=== PATIENT | female | born 1950 | race Two or more races ===

== ENCOUNTER 2023-06-27 07:22 | Outpatient (AMB) | payer MEDICARE, SELFPAY ==
--- NOTE | 2023-06-27 07:35 | MHC.PC.OV ---
Vital Signs 06/27/23 07:37 Height 5 ft 2.8 in Weight 204 lb BMI 36.4 BP 120/68 Blood Pressure Location Rt brachial Position Sitting Pulse 60 Pulse Source Pulse Oximeter Pulse Oximetry (%) 98 Oxygen Delivery Method Room Air Intake Visit Reasons: Est. Care/Requesting PE Intake Note: pt is here to est care pt has not had a colon screening last mammo was 14-20 years ago Allergies ENVIROMENTAL Allergy (Unknown, Uncoded 06/27/23 07:40) HEADACHES, DIZZY - FROM CERTAIN GRASS Medication List - Last Reconciled 06/27/23 by Fabiola Chacon MD No Known Home Meds Tobacco use date assessed: 06/27/23 Fall risk assessment: No Falls in past year Last assessed Fall Risk: 06/27/23 Dental Screening Dental Screen Date: 06/27/23 Did you have a dental visit in the last 12 months?: No Did you have a dental problem in the last 6 months where you did not have access to dental care?: No Was dental information given to patient?: No HPI Est. 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 Patient has a history of longstanding rosacea and has tried multiple creams in the past but has not been consistently using them. [facility] Social History Patient Tobacco Use Status: Never used Tobacco e-Cigarette/Vaping Use: Never Used Current occupational status: retired Review of Systems Const All systems reviewed & are unremarkable except as noted in HPI and below Reports no additional complaints Eyes Reports no additional complaints ENT Reports no additional complaints Card Reports no additional complaints Resp Reports no additional complaints GI Reports no additional complaints Reports no additional complaints Musc Reports no additional complaints Physical exam (Primary Care) Vital Signs: Last Vital Signs Pulse 60 06/27/23 07:37 BP 120/68 06/27/23 07:37 Pulse Ox 98 06/27/23 07:37 Oxygen Delivery Method Room Air 06/27/23 07:37 BMI result Body Mass Index 36.4 Tobacco/Smoking Status: Tobacco use Status Tobacco use date assessed 06/27/23 06/27/23 07:44 Patient Tobacco Use Status Never used Tobacco 06/27/23 07:35 e-Cigarette/Vaping Use Never Used 06/27/23 07:44 Const General: no acute distress HENMT Head: Yes normal to inspection Ears: hearing grossly normal bilaterally General nose exam: Normal external nose present Mouth: Normal oral and palatal mucosa present Throat: Yes posterior oropharynx normal Eyes General: appearance normal, both eyes and all related structures Neck Neck: Yes no lymphadenopathy and Yes supple Resp Effort & Inspection: normal respiratory effort Auscultation: clear to auscultation bilaterally Cardio Rhythm: regular rhythm Heart sounds: S1 normal heart sound present and S2 normal heart sound present GI Inspection: Yes normal to inspection Palpation (GI): Soft to palpation Percussion: Yes normal to percussion Auscultation: normal bowel sounds Skin Other: Erythematous papular rash and telangiectasia on the nose and cheeks Assessment and Plan Assessment & Plan (1) Annual physical exam: Code(s): Z00.00 - Encounter for general adult medical examination without abnormal findings Plan: Balanced diet and regular physical activity weight loss discussed with the patient. She will have a fasting blood work today. Patient declined mammogram and colonoscopy (2) Rosacea: Code(s): L71.9 - Rosacea, unspecified Plan: Try Finacea gel and refer to logistics program manager. (3) Colonoscopy refused: Comment: 07/17 Code(s): Z53.20 - Procedure and treatment not carried out because of patient's decision for unspecified reasons (4) Mammogram declined: Comment: 07/17 Code(s): Z53.20 - Procedure and treatment not carried out because of patient's decision for unspecified reasons Orders: Orders Vitamin D 25-OH Total Today Z00.00 - Encounter for general adult medical examination without abnormal findings Lipid Panel Today Z00.00 - Encounter for general adult medical examination without abnormal findings Comprehensive Sterrett. Panel Fast Today Z00.00 - Encounter for general adult medical examination without abnormal findings Complete Blood Count Auto Diff Today Z00.00 - Encounter for general adult medical examination without abnormal findings TSH reflex Free T4 Today Z00.00 - Encounter for general adult medical examination without abnormal findings Referrals Dermatology Referral L71.9 - Rosacea, unspecified Cologuard Test Z00.00 - Encounter for general adult medical examination without abnormal findings, Z12.11 - Encounter for screening for malignant neoplasm of colon, Z12.12 - Encounter for screening for malignant neoplasm of rectum Medications: New azelaic acid 15% (Finacea) 1 appl topical BID 50 grams 4RF Coding Level of Care Code New Pt Prev Care >65yr (38262) Diagnoses Annual physical exam Z00.00 Rosacea L71.9 Colonoscopy refused Z53.20 Mammogram declined Z53.20
[2023-06-27 07:37] VITALS: BP 120/68; PULSE 60; O2SAT 98; BMI 36.4
== END 2023-06-27 09:13 | disposition home or self-care (01) ==
PROVIDERS: Visit Provider Internal Medicine
DX: Z00.00 Encounter for general adult medical examination without abnormal findings (principal); L71.9 Rosacea, unspecified; Z53.20 Procedure and treatment not carried out because of patient's decision for unspecified reasons
CPT/HCPCS: 99387; 99397

== ENCOUNTER 2023-06-27 08:15 | Outpatient (REF) | payer MEDICARE, SELFPAY ==
[2023-06-27 11:29] LABS: MANUAL DIFF FLAG NO
[2023-06-27 11:35] LABS: Basophils Percent Auto 0.4 % (0-2); Eosinophils Absolute Auto 0.2 X10*3/uL (0.0-0.4); Eosinophils Percent Auto 4.7 % (0-4); Hematocrit 37.4 % (37.0-47.0); Imm Gran Abs Auto 0.01 X10*3/uL (0.00-0.03); Imm Gran Pct Auto 0.2 % (0.0-0.4); Lymphocytes Percent Auto 43.4 % (20-40); Mean Corpuscular HGB Conc 32.1 g/dl (31.0-35.0); Mean Corpuscular Hemoglobin 26.7 pg (27.0-33.0); Mean Corpuscular Volume 83.3 fL (80.0-98.0); Mean Platelet Volume 10.7 fL (9.4-12.3); Monocytes Absolute Auto 0.4 X10*3/uL (0.1-1.2); Monocytes Percent Auto 8.4 % (2-11); Neutrophils Percent Auto 42.9 % (45-73); Platelet Count 230 X10*3/uL (160-400); Red Blood Count 4.49 X10*6/uL (4.20-5.50); Red Cell Distribution Width 14.5 % (11.0-16.0); White Blood Count 4.7 X10*3/uL (4.8-10.8)
[2023-06-27 12:22] LABS: Alanine Aminotransferase 15 U/L (0-31); Albumin Level 3.9 g/dL (3.5-5.0); Alkaline Phosphatase 60 U/L (39-117); Anion Gap 12 (12-20); Aspartate Amino Transferase 19 U/L (5-31); Bilirubin Total 0.3 mg/dL (0.0-1.0); Blood Urea Nitrogen 13 mg/dL (9-16); Calcium 9.4 mg/dL (8.4-10.2); Carbon Dioxide 27 mmol/L (22-29); Chloride 107 mmol/L (96-108); Cholesterol 196 mg/dL (<200); Estimated Glomerular Filt Rate > 60; Glucose Fasting 101 mg/dL (60-99); HDL Cholesterol 54 mg/dL (>40); LDL Cholesterol Calculated 128 mg/dL (<100); Potassium 4.2 mmol/L (3.3-5.1); Sodium 142 mmol/L (135-145); TSH reflex Free T4 3.26 uIU/mL (0.32-4.0); Total Protein 7.1 g/dL (6.5-8.0); Triglycerides 73 mg/dL (<150); Vitamin D 25-OH Total 16.5 ng/mL (>30)
== END 2023-06-27 08:16 | disposition home or self-care (01) ==
LOC: HO.HMGCLDS 08:15
PROVIDERS: PCP Internal Medicine; Visit Provider Internal Medicine
DX: Z00.00 Encounter for general adult medical examination without abnormal findings (principal); Z20.2 Contact with and (suspected) exposure to infections with a predominantly sexual mode of transmission
CPT/HCPCS: 36415; 80053; 80061; 82306; 84443; 85025

== ENCOUNTER 2024-03-22 12:35 | Outpatient (AMB) | payer MEDICARE, SELFPAY ==
[2024-03-22 13:02] VITALS: BP 120/70; PULSE 74; O2SAT 97; BMI 38.0
--- NOTE | 2024-03-22 13:02 | MHC.PC.OV ---
Vital Signs 03/22/24 13:02 Height 5 ft 2 in Weight 208 lb BMI 38.0 BP 120/70 Blood Pressure Location Rt brachial Position Sitting Pulse 74 Pulse Source Pulse Oximeter Pulse Oximetry (%) 97 Oxygen Delivery Method Room Air Intake Visit Reasons: High Blood Pressure Allergies ENVIROMENTAL Allergy (Unknown, Uncoded 03/22/24 13:05) HEADACHES, DIZZY - FROM CERT[facility] [place] Medication List - Last Reconciled 03/22/24 by Fabiola Chacon MD azelaic acid 15% (Finacea) 1 appl topical BID cholecalciferol (vitamin D3) 50 mcg PO DAILY metronidazole 0.75% 1 appl topical BEDTIME Tobacco use date assessed: 03/22/24 Fall risk assessment: No Falls in past year Last assessed Fall Risk: 03/22/24 Dental Screening Dental Screen Date: 03/22/24 Did you have a dental visit in the last 12 months?: Yes Did you have a dental problem in the last 6 months where you did not have access to dental care?: No Was dental information given to patient?: Patient has dentist HPI High Blood Pressure HPI Details Patient presents complaining of the episode of palpitations and increased heart rate 3 days ago lasting for few hours after working cleaning basement. She denies chest pain diaphoresis nausea vomiting associated with the episode. Patient does not exercise regularly but has been physically active and denies exertional chest pain shortness of breath or palpitations. [facility] Surgical History (Updated 03/22/24 @ 13:06 by Say Harrison CMA) No pertinent past surgical history Social History Patient Tobacco Use Status: Never used Tobacco e-Cigarette/Vaping Use: Never Used Current occupational status: retired Cognitive needs: No Hearing needs: No Vision needs: No Questionnaire PHQ-9 Over the last 2 weeks, how often have you been bothered by any of the following problems? 1. Little interest or pleasure in doing things: not at all 2. Feeling down, depressed, or hopeless: not at all 3. Trouble falling or staying asleep, or sleeping too much: not at all 4. Feeling tired or having little energy: not at all 5. Poor appetite or overeating: not at all 6. Feeling bad about yourself - or that you are a failure or have let yourself or your family down: not at all 7. Trouble concentrating on things, such as reading the newspaper or watching television: not at all 8. Moving or speaking so slowly that other people could have noticed. Or the opposite - being so fidgety or restless that you have been moving around a lot more than usual: not at all 9. Thoughts that you would be better off or of hurting yourself in some way: not at all Total score: 0 Depression Screening Interpretation: Negative Depression Screening Done: Yes 67461 - PHQ-9 Billing: Yes Source: Developed by Drs. Kye Mcmillan, Deepika Luna, Tree Garsia and colleagues, with an educational gregorio from [employer]. Thrive Questionnaire Date Thrive assessed: 03/22/24 I am a: Patient What is your living situation today?: I have a steady place to live Within the past 12 months, did the food you bought not last and you didn't have the money to get more?: Never true Within the past 12 months, did you worry whether your food would run out before you got money to buy more?: Never true Do you have trouble paying for medicines?: No Do you have trouble getting transportation to medical appointments?: No Do you have trouble paying your heating and electricity bill?: No Do you have trouble taking care of your child, family member or friend?: No Do you have trouble with day-to-day activities such as bathing, preparing meals, shopping, managing finances, etc.?: No Are you currently unemployed and looking for a job?: No Are you interested in more education?: No Please select the resources that you would like help with: None Currently or been in a relationship where the following occur: No concerns reported THRIVE Score: 0 AUDIT C Alcohol Use Questionnaire (AUDIT-C) 1. How often do you have a drink containing alcohol?: Never 3. How often do you have six or more drinks on one occasion?: Never Total Score: 0 Score Reviewed/Action Taken: Yes MART-7 AMB Questionnaire MART-7 Date MART - 7 assessed: 03/22/24 Feeling nervous, anxious, or on edge: 0 = Not at all Not being able to stop or control worryin = Not at all Worrying too much about different things: 0 = Not at all Trouble relaxin = Not at all Being so restless that it is hard to sit still: 0 = Not at all Becoming easily annoyed or irritable: 0 = Not at all Feeling afraid as if something awful might happen: 0 = Not at all Total MART-7 score (0-4 normal; 5-9 mild; 10-14 moderate; 15-21 severe): 0 Source: Developed by Drs. Kye Mcmillan, Deepika Luna, Tree Garsia and colleagues, with an educational gregorio from [employer]. MART-7 Assessment Billing MART-7 Assessment Tool: MART-7 Assessment 33297 Review of Systems Const All systems reviewed & are unremarkable except as noted in HPI and below Reports no additional complaints ENT Reports no additional complaints Card Reports no additional complaints Resp Reports no additional complaints GI Reports no additional complaints Reports no additional complaints Physical exam (Primary Care) Vital Signs: Last Vital Signs Pulse 74 03/22/24 13:02 BP 120/70 03/22/24 13:02 Pulse Ox 97 03/22/24 13:02 Oxygen Delivery Method Room Air 03/22/24 13:02 BMI result Body Mass Index 38.0 Tobacco/Smoking Status: Tobacco use Status Tobacco use date assessed 03/22/24 03/22/24 13:07 Patient Tobacco Use Status Never used Tobacco 03/22/24 13:07 e-Cigarette/Vaping Use Never Used 03/22/24 13:07 PHQ-9: PHQ-9 Score PHQ-9: Total score 0 03/22/24 13:52 Depression Screening Interpretation: Negative Thrive Assessment: Date of Thrive Assessment Date Thrive assessed 03/22/24 03/22/24 13:07 Currently or been in a relationship where the following occur: No concerns reported Const General: no acute distress [facility] General nose exam: Normal external nose present Face and sinus: Yes normal facial exam Eyes General: appearance normal, both eyes and all related structures Neck Neck: Yes no lymphadenopathy and Yes supple Resp Effort & Inspection: normal respiratory effort Auscultation: clear to auscultation bilaterally Cardio Rhythm: regular rhythm Heart sounds: S1 normal heart sound present and S2 normal heart sound present GI Inspection: Yes normal to inspection Palpation (GI): Soft to palpation Percussion: Yes normal to percussion Assessment and Plan Assessment & Plan (1) Palpitations: Code(s): R00.2 - Palpitations Plan: EKG showed normal sinus rhythm nonspecific ST-T changes. Patient has a fasting blood work today echo and 3D Holter will be scheduled. For any recurrent prolonged palpitations patient was advised to go to the ER. She will follow-up in 1 month Orders: Orders CA echo transthoracic complete Today R00.2 - Palpitations AMB EKG-In Office Today R00.2 - Palpitations Complete Blood Count Auto Diff Today R00.2 - Palpitations Comprehensive Met. Panel Today R00.2 - Palpitations TSH reflex Free T4 Today R00.2 - Palpitations Magnesium Today R00.2 - Palpitations ECG 3 day holter monitor Today R00.2 - Palpitations Medications: New metronidazole 0.75% 1 appl topical BEDTIME 45 grams 3RF Refilled azelaic acid 15% (Finacea) 1 appl topical BID 50 grams 4RF Coding Level of Care Code Est Pt Level 3 (27288) Diagnoses Palpitations R00.2 Additional Codes MART-7 Assessment Billing - MART-7 Assessment Tool: MART-7 Assessment 34618 ([id number])
== END 2024-03-22 14:10 | disposition home or self-care (01) ==
PROVIDERS: PCP Internal Medicine; Visit Provider Internal Medicine
DX: R00.2 Palpitations (principal)
CPT/HCPCS: 99213

== ENCOUNTER 2024-03-23 08:05 | Outpatient (REF) | payer MEDICARE, SELFPAY ==
[2024-03-23 11:15] LABS: MANUAL DIFF FLAG NO
[2024-03-23 11:52] LABS: Basophils Percent Auto 0.3 % (0-2); Eosinophils Absolute Auto 0.2 X10*3/uL (0.0-0.4); Hematocrit 38.3 % (37.0-47.0); Hemoglobin 12.4 g/dl (12.0-16.0); Imm Gran Abs Auto 0.01 X10*3/uL (0.00-0.03); Imm Gran Pct Auto 0.3 % (0.0-0.4); Lymphocytes Absolute Auto 1.6 X10*3/uL (1.2-4.9); Lymphocytes Percent Auto 43.1 % (20-40); Mean Corpuscular HGB Conc 32.4 g/dl (31.0-35.0); Mean Corpuscular Hemoglobin 26.7 pg (27.0-33.0); Mean Corpuscular Volume 82.4 fL (80.0-98.0); Mean Platelet Volume 10.4 fL (9.4-12.3); Monocytes Absolute Auto 0.3 X10*3/uL (0.1-1.2); Monocytes Percent Auto 7.5 % (2-11); Neutrophils Absolute Auto 1.7 x10*3/uL (2.0-8.3); Neutrophils Percent Auto 44.8 % (45-73); Platelet Count 245 X10*3/uL (160-400); Red Blood Count 4.65 X10*6/uL (4.20-5.50); White Blood Count 3.7 X10*3/uL (4.8-10.8)
[2024-03-23 12:17] LABS: Alanine Aminotransferase 18 U/L (0-31); Albumin Level 3.9 g/dL (3.5-5.0); Alkaline Phosphatase 50 U/L (39-117); Anion Gap 12 (12-20); Aspartate Amino Transferase 21 U/L (5-31); Bilirubin Total 0.6 mg/dL (0.0-1.0); Blood Urea Nitrogen 18 mg/dL (9-16); Calcium 9.4 mg/dL (8.4-10.2); Carbon Dioxide 27 mmol/L (22-29); Chloride 107 mmol/L (96-108); Estimated Glomerular Filt Rate > 60; Glucose Random 97 mg/dL (60-115); Magnesium 1.8 mg/dL (1.6-2.6); Potassium 4.1 mmol/L (3.3-5.1); Sodium 142 mmol/L (135-145); Total Protein 6.9 g/dL (6.5-8.0)
[2024-03-23 12:34] LABS: TSH reflex Free T4 3.38 uIU/mL (0.32-4.0)
== END 2024-03-23 08:06 | disposition home or self-care (01) ==
LOC: HO.WFDLDS 08:05
PROVIDERS: Visit Provider Internal Medicine
DX: R00.2 Palpitations (principal)
CPT/HCPCS: 36415; 80053; 83735; 84443; 85025

== ENCOUNTER → 2024-05-06 09:28 | Outpatient (REF) | payer MEDICARE, SELFPAY ==
--- NOTE | 2024-05-06 09:37 | HM_ITS ---
Conclusion: 1. Patient was monitored for total period of 6 days and 15 hours 2. Baseline was normal sinus rhythm with average heart of 76 beats per minute 3. Intermittent episodes of atrial fibrillation noted with total burden of 15.3%, episode lasting 10 hours and 24 minutes with fastest heart rate of 146 beats per minute 4. No significant pauses noted 5. No patient reported events MTDD
--- NOTE | 2024-05-06 09:37 | CA_ITS ---
Transthoracic Echocardiogram Patient (Last, First, Middle): Jenny Park, Gender: Female Date of : 1950 Age: 74 Procedure Date: 05/06/2024 Procedure Type: Transthoracic Echocardiogram Location: OP Height: 157.48 cm Weight: 94.35 kg BSA: 1.94 m2 Heart Rate: 71 bpm BP: 124 / 72 mmHg Gate Keeper: SB Referring MD: Fabiola Chacon MD Judicial Administrative Assistant: Vinicius Brice MD Symptoms: R00.2 - Palpitations Study Quality: Fair but adequate apical images ECG Rhythm: Sinus Conclusions: - 1. Normal LV ejection fraction at 60-65% with pseudonormal filling pattern 2. Normal cardiac valvular Dopplers 3. Normal RV systolic pressure 4. Upper limits of normal ascending aortic size 5. No gross pericardial effusion Findings Left Ventricle Normal left ventricular size, thickness, and systolic function. The visually estimated ejection fraction is between 60-65%. Spectral Doppler is indicative of a pseudonormal filling pattern. E/E prime ratio is between 8 and 15 consistent with indeterminate filling pressures. Right Ventricle Mildly increased right ventricular cavity size. There is normal right ventricular systolic function. Atria The left atrium is normal in size. There is no evidence of interatrial shunt. The right atrium is likely dilated. Aortic Valve There is mild calcification of the aortic valve. There is no aortic valve stenosis. There is no aortic valve regurgitation. Mitral Valve Likely normal mitral valve structure and function. There is trace mitral valve regurgitation. There is no mitral valve stenosis. Pulmonic Valve The pulmonic valve was not well visualized. Tricuspid Valve Likely normal tricuspid valve structure and function. There is mild tricuspid valve regurgitation. The right ventricular systolic pressure is 32 mmHg. Normal right atrial pressure. There is no evidence of pulmonary hypertension. Great Vessels All visible segments of the aorta are normal in size. The pulmonary artery was not well visualized. Venous The inferior vena cava is normal in size. Pericardium/Pleural There is no evidence of pericardial effusion. Prior Study Comparison No prior study available for comparison. Measurements 2D Linear Measurements IVSd: 1.04 0.6-0.9/0.6-1.0 cm LVIDd: 4.67 3.9-5.3/4.2-5.9 cm LVIDd Index: 2.41 2.4-3.2/2.2-3.1 cm/m2 LVIDs: 3.55 2.0-3.6 cm LVPWd: 0.78 0.7-1.1 cm LA Diam: 3.70 2.7-3.8/3.0-4.0 cm LAIDs Index: 1.91 1.5-2.3 cm/m2 LV Mass: 178.24 67-162/88-224 g LV Mass Index: 91.88 43-95/49-115 g/m2 LVOT Diam: 2.00 3.0+(-)1.3 cm 2D Systolic Function EF 4C: 61.70 >55% EF 2C: 59.70 >55% EF BiP: 61.30 >55% Mitral Valve MV Pk E: 1.02 MV PK A: 0.93 MV Decel Time: 207.00 E/A: 1.10 E'Lateral: 7.51 E'Medial: 5.44 E/E' Med: 18.80 E/E' Lat: 13.60 PHT: 61.00 MVA PHT: 3.61 Decel Taney: 4.93 Aortic Valve AoV Pk Neri: 1.22 AoV Pk Grad: 6.00 ALEX: 2.75 LVOT LVOT Pk Neri: 1.06 LVOT Mn Neri: 0.67 LVOT VTI: 0.24 LVOT Pk Grad: 4.00 LVOT Mn Grad: 2.00 LVOT Diam: 2.00 LVOT Area: 3.14 Diastolic Function MV Pk E: 1.02 MV Pk A: 0.93 E/A: 1.10 E'Medial: 5.44 E/E' Med: 18.80 E' Laterial: 7.51 E/E' Lat: 13.60 Right Ventricle TAPSE (mm): 19.40 TVS' Neri: 12.30 Tricuspid Valve TR Pk Neri: 2.68 TR Pk Grad: 29.00 RA Press: 3.00 RVSP: 32.00 Great Vessels Aorta Sinus of Valsalva: 2.80 2.0-3.5 cm Ao Asc: 3.50 2.1-3.4 cm Ao Arch: 3.10 Pulmonary Veins Pulm Vein S/D 1.30 Pulmonary Valve PV Pk Neri: 0.81 Peak PV Grad: 3.00 Updated in Other Vendor System with Status of Final Vinicius Brice MD electronically signed on 05/06/2024 3:10:46 PM with status of Final
== END ==
LOC: HO.CARD 09:28
PROVIDERS: PCP Internal Medicine; Visit Provider Internal Medicine
DX: R00.2 Palpitations (principal)
CPT/HCPCS: 93242; 93306

== ENCOUNTER → 2024-05-06 09:37 | Outpatient (BNV) | payer MEDICARE, SELFPAY | PROVIDERS: PCP Internal Medicine; Visit Provider Internal Medicine Cardiovascular Disease | DX: I48.91 Unspecified atrial fibrillation (principal) | CPT/HCPCS: 93244; 93306 ==

== ENCOUNTER 2024-05-13 10:53 | Outpatient (AMB) | payer MEDICARE, SELFPAY ==
--- NOTE | 2024-05-13 11:13 | MHC.PC.OV ---
Vital Signs 05/13/24 11:15 05/13/24 11:18 Height 5 ft 2 in Weight 211 lb BMI 38.6 BP 110/66 Blood Pressure Location Lt brachial Position Sitting Pulse 103 H 91 Pulse Source Pulse Oximeter Pulse Oximeter Pulse Oximetry (%) 99 Oxygen Delivery Method Room Air Intake Visit Reasons: high BP Intake Note: Pt is here today for a follow up visit on BP. Allergies ENVIROMENTAL Allergy (Unknown, Uncoded 03/22/24 13:05) HEADACHES, DIZZY - FROM CERT[facility] [place] Medication List - Last Reconciled 05/13/24 by Fabiola Chacon MD apixaban (Eliquis) 5 mg PO BID azelaic acid 15% (Finacea) 1 appl topical BID cholecalciferol (vitamin D3) 50 mcg PO DAILY metoprolol succinate ER 25 mg PO DAILY metronidazole 0.75% 1 appl topical BEDTIME Tobacco use date assessed: 03/22/24 Dental Screening Dental Screen Date: 03/22/24 HPI high BP HPI Details Patient presents for the follow-up. She complains of episodes of increased heart rate up to 130, lasting a few minutes, a few times a week, not related to physical activity stress but occasionally waking patient's up at night. She denies chest pain nausea diaphoresis associated with palpitations. Patient is not physically active. She had a normal echocardiogram last week and completed Holter yesterday but no results available yet. [facility] Surgical History No pertinent past surgical history Social History Patient Tobacco Use Status: Never used Tobacco e-Cigarette/Vaping Use: Never Used Current occupational status: retired Cognitive needs: No Hearing needs: No Vision needs: No Questionnaire PHQ-9 Over the last 2 weeks, how often have you been bothered by any of the following problems? 1. Little interest or pleasure in doing things: not at all Source: Developed by Drs. Kye Mcmillan, Deepika Luna, Tree Garsia and colleagues, with an educational gregorio from [employer]. Thrive Questionnaire Date Thrive assessed: 03/22/24 MART-7 AMB Questionnaire MART-7 Date MART - 7 assessed: 03/22/24 Source: Developed by Drs. Kye Mcmillan, Deepika Luna, Tree Garsia and colleagues, with an educational gregorio from [employer]. Review of Systems Const All systems reviewed & are unremarkable except as noted in HPI and below ENT Reports no additional complaints Card Reports no additional complaints Resp Reports no additional complaints GI Reports no additional complaints Physical exam (Primary Care) Vital Signs: Last Vital Signs Pulse 91 05/13/24 11:18 BP 110/66 05/13/24 11:15 Pulse Ox 99 05/13/24 11:15 Oxygen Delivery Method Room Air 05/13/24 11:15 BMI result Body Mass Index 38.6 Tobacco/Smoking Status: Tobacco use Status Tobacco use date assessed 03/22/24 05/13/24 11:14 Patient Tobacco Use Status Never used Tobacco 05/13/24 11:14 e-Cigarette/Vaping Use Never Used 05/13/24 11:14 Thrive Assessment: Date of Thrive Assessment Date Thrive assessed 03/22/24 05/13/24 11:14 Const General: no acute distress HENMT Head: Yes normal to inspection Throat: Yes posterior oropharynx normal Neck Neck: Yes supple Resp Effort & Inspection: normal respiratory effort Auscultation: clear to auscultation bilaterally Cardio Rhythm: abnormal rhythm irregularly irregular Heart sounds: S1 normal heart sound present and S2 normal heart sound present GI Inspection: Yes normal to inspection Palpation (GI): Soft to palpation Percussion: Yes normal to percussion Auscultation: normal bowel sounds Assessment and Plan Assessment & Plan (1) A-fib: Comment: Echo 04/2024 nl EF, nl valves, started Metoprolol 25 mg and Eliquis 05/13/24 Code(s): I48.91 - Unspecified atrial fibrillation Plan: EKG showed AFib with a heart rate of 98 and T-wave inversions in 1 2 V[address] V6 no [address] elevations. Start 25 mg of metoprolol for rate control and Eliquis for anticoagulation referral to Cardiology follow-up in 1 month (2) Annual physical exam: Code(s): Z00.00 - Encounter for general adult medical examination without abnormal findings Orders: Orders Lipid Panel 1 Month I48.91 - Unspecified atrial fibrillation, Z00.00 - Encounter for general adult medical examination without abnormal findings Vitamin D 25-OH Total 1 Month I48.91 - Unspecified atrial fibrillation, Z00.00 - Encounter for general adult medical examination without abnormal findings Referrals Cardiology Referral I48.91 - Unspecified atrial fibrillation Medications: New metoprolol succinate ER 25 mg PO DAILY 90 tabs 0RF apixaban (Eliquis) 5 mg PO BID 180 tabs 0RF Refilled cholecalciferol (vitamin D3) 50 mcg PO DAILY 90 tabs 2RF Coding Level of Care Code Est Pt Level 3 (84520) Diagnoses A-fib I48.91 Annual physical exam Z00.00
[2024-05-13 11:15] VITALS: BP 110/66; PULSE 103; O2SAT 99; BMI 38.6
[2024-05-13 11:18] VITALS: PULSE 91
== END 2024-05-13 12:31 | disposition home or self-care (01) ==
PROVIDERS: PCP Internal Medicine; Visit Provider Internal Medicine
DX: I48.91 Unspecified atrial fibrillation (principal); Z00.00 Encounter for general adult medical examination without abnormal findings

== ENCOUNTER → 2024-05-13 10:53 | Outpatient (BNVA) | payer MEDICARE, SELFPAY | PROVIDERS: PCP Internal Medicine; Visit Provider Internal Medicine | DX: Z00.00 Encounter for general adult medical examination without abnormal findings (principal); Z79.899 Other long term (current) drug therapy | CPT/HCPCS: 99212 ==

== ENCOUNTER 2024-06-09 09:08 | Outpatient (AMB) | payer MEDICARE, SELFPAY ==
--- NOTE | 2024-06-09 09:17 | MHC.OFFVIS ---
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 Development Manager Required: Yes Process Development Manager Services: Process Development Manager Offered & Declined Accompanied by: Daughter Allergies ENVIROMENTAL Allergy (Unknown, Uncoded 03/22/24 13:05) HEADACHES, DIZZY - FROM CERTAIN GRASS Medication List - Last Reconciled 06/09/24 by Vinicius Brice MD apixaban (Eliquis) 5 mg PO BID azelaic acid 15% (Finacea) 1 appl topical BID cholecalciferol (vitamin D3) 50 mcg PO DAILY metoprolol succinate ER 25 mg PO DAILY metronidazole 0.75% 1 appl topical BEDTIME HPI Comments Details: Thank you for referring Jenny in cardiology consultation today for management of atrial fibrillation. She is a pleasant 74-year-old [place] woman, presented with her daughter who acted as hydrogen power plant manager. Patient was having symptoms of palpitations along with feeling of fatigue which led to eventual Holter monitor which detected intermittent episodes of atrial fibrillation with total burden of about 15% with rapid heart rate. Patient had an echocardiogram which showed upper limits of normal right-sided chamber size otherwise normal LV ejection fraction with pseudonormal filling pattern. Patient subsequently was started on Eliquis and metoprolol. Since starting metoprolol she says the symptoms of palpitations have significantly improved. She feels well. She denies any other exertional symptoms. Says active and has no symptoms exertional shortness of breath or chest pain. No orthopnea, PND, leg edema. She denies any significant snoring or daytime somnolence or any episodes of apnea. She is overall doing well on current medical therapy. Workup including renal function, CBC, potassium as well as TSH is within normal limits. She denied any excessive caffeine use. She denies any alcohol use. She is otherwise active and functional. No obvious family history for atrial fibrillation. [facility] Medical History (Updated 06/09/24 @ 09:48 by Vinicius Brice MD) A-fib Paroxysmal atrial fibrillation Surgical History No pertinent past surgical history Social History Alcohol intake: never Patient Tobacco Use Status: Never used Tobacco e-Cigarette/Vaping Use: Never Used Current occupational status: retired Cognitive needs: No Hearing needs: No Vision needs: No Review of Systems Const Denies weakness ENT Denies dizziness Card Denies chest pain, Denies chest pain with activity, Denies syncope, Denies rapid heart rate, Denies pedal edema, Denies edema, Denies leg edema, Denies lightheadedness, Reports palpitations, Denies dyspnea, Denies dyspnea on exertion and Denies orthopnea Resp Denies cough, Denies dyspnea and Denies dyspnea on exertion GI Denies hematochezia and Denies change in stool character Musc Denies abnormal gait, Denies muscle cramps, Denies muscle weakness, Denies numbness, Denies radiating pain into limb and Denies tingling Neuro Denies abnormal gait, Denies dizziness, Denies syncope, Denies numbness, Denies tingling and Denies weakness Endo Reports palpitations Physical Exam Vital Signs: Last Vital Signs Pulse 62 06/09/24 09:18 BP 118/60 06/09/24 09:18 BMI result Body Mass Index 37.9 Const General: cooperative, comfortable, no acute distress, alert, awake and Physically active Nutritional Appearance: obese Orientation/consciousness: patient oriented x3 HEENT Head: Yes normocephalic and Yes atraumatic Neck Neck: Yes trachea midline, Yes supple and Yes no JVD Resp Effort & Inspection: normal respiratory effort Auscultation: clear to auscultation bilaterally Cardio Jugular venous distension: no JVD Palpation: normal PMI Rate: regular rate Rhythm: abnormal rhythm with ectopic beats Heart sounds: S1 normal heart sound present, S2 normal heart sound present, no click, no gallops, no murmurs and no rubs GI Auscultation: normal bowel sounds Skin General skin exam: no rashes or lesions noted Neuro General: patient oriented x3 and no focal motor deficits Extrem General: Yes no clubbing, cyanosis or edema Psych Appearance: grossly normal Office Procedures EKG Details: EKG shows normal sinus rhythm with isolated PACs with aberrant conduction with nonpathologic Q-waves in inferior lead [id number], Complete Assessment & Plan Assessment & Plan (1) Paroxysmal atrial fibrillation: Code(s): I48.0 - Paroxysmal atrial fibrillation Category: Medical Plan: Paroxysmal atrial fibrillation this elderly woman without any other obvious risk factors of hypertension and diabetes with risk factor of obesity. Possible sleep apnea given mi right-sided chamber enlargement but she has no obvious other clinical symptoms. At this point time I suggested her to continue with current therapy as her symptoms have significantly improved. I had a very detailed discussion about pathophysiology of atrial fibrillation and symptoms associated with it. Also discussed about in details about management. She will obviously do very well with rhythm control approach and currently doing well. Have advised her to consider investing in a EKG sensor to help with monitoring of her AFib as outpatient. She will look into it. CHADSVASc score of 2. Agree with oral anticoagulation therapy. If she has increasing burden of atrial fibrillation may require antiarrhythmic drug therapy and/or ablation. This was discussed with her. Will follow up in the clinic in 1 year's time, sooner p.r.n.. Thank you for allowing me to partake in his care Coding Level of Care Code New Pt Level 4 (79598) Complex EM visit Add On G2211 Diagnoses Paroxysmal atrial fibrillation I48.0 CPT Codes EKG - CPT: 14345-[id number], Complete ([id number])
[2024-06-09 09:18] VITALS: BP 118/60; PULSE 62; BMI 37.9
== END 2024-06-09 09:46 | disposition home or self-care (01) ==
PROVIDERS: PCP Internal Medicine; Visit Provider Internal Medicine Cardiovascular Disease
DX: I48.0 Paroxysmal atrial fibrillation (principal)
CPT/HCPCS: 93010; 99214; G2211

== ENCOUNTER → 2024-06-09 09:08 | Outpatient (BNVA) | payer MEDICARE, SELFPAY | PROVIDERS: PCP Internal Medicine; Visit Provider Internal Medicine Cardiovascular Disease | DX: I48.0 Paroxysmal atrial fibrillation (principal) | CPT/HCPCS: 93005; 99212 ==

== ENCOUNTER 2024-06-14 08:11 | Outpatient (REF) | payer MEDICARE, SELFPAY ==
[2024-06-14 12:45] LABS: Cholesterol 180 mg/dL (<200); HDL Cholesterol 52 mg/dL (>40); LDL Cholesterol Calculated 112 mg/dL (<100); Triglycerides 80 mg/dL (<150)
[2024-06-14 12:50] LABS: Vitamin D 25-OH Total 21.5 ng/mL (>30)
== END 2024-06-14 08:12 | disposition home or self-care (01) ==
LOC: HO.WFDLDS 08:11
PROVIDERS: Visit Provider Internal Medicine
DX: Z00.00 Encounter for general adult medical examination without abnormal findings (principal); I48.91 Unspecified atrial fibrillation
CPT/HCPCS: 36415; 80061; 82306

== ENCOUNTER 2025-07-26 09:57 | Outpatient (REF) | payer MEDICARE, SELFPAY ==
[2025-07-26 11:21] LABS: MANUAL DIFF FLAG NO
[2025-07-26 11:32] LABS: Hematocrit 37.4 % (37.0-47.0); Hemoglobin 12.1 g/dl (12.0-16.0); Imm Gran Abs Auto 0.01 X10*3/uL (0.00-0.03); Imm Gran Pct Auto 0.2 % (0.0-0.4); Lymphocytes Absolute Auto 2.0 X10*3/uL (1.2-4.9); Mean Corpuscular HGB Conc 32.4 g/dl (31.0-35.0); Mean Corpuscular Hemoglobin 26.7 pg (27.0-33.0); Mean Corpuscular Volume 82.4 fL (80.0-98.0); NRBC Abs Auto 0.000 X10*3/uL (0.0-0.012); NRBC Pct Auto 0.0 /100WBC (0.0-0.2); Platelet Count 240 X10*3/uL (160-400); Red Blood Count 4.54 X10*6/uL (4.20-5.50); White Blood Count 4.7 X10*3/uL (4.8-10.8)
[2025-07-26 12:04] LABS: Alanine Aminotransferase 21 U/L (0-31); Albumin Level 4.2 g/dL (3.5-5.0); Alkaline Phosphatase 64 U/L (39-117); Anion Gap 11 (12-20); Aspartate Amino Transferase 29 U/L (5-31); Blood Urea Nitrogen 17 mg/dL (9-16); Calcium 9.2 mg/dL (8.4-10.2); Carbon Dioxide 27 mmol/L (22-29); Chloride 106 mmol/L (96-108); Cholesterol 192 mg/dL (<200); Estimated Glomerular Filt Rate > 60; HDL Cholesterol 54 mg/dL (>40); Potassium 3.9 mmol/L (3.3-5.1); Sodium 140 mmol/L (135-145); Total Protein 7.0 g/dL (6.5-8.0); Triglycerides 79 mg/dL (<150)
[2025-07-26 15:05] LABS: Appearance Urine Clear; Glucose Urine UA Negative (Negative); PH 5.5 (5.0-9.0); Specific Gravity - Urine 1.015 (1.005-1.025); UMIC TRIGGER UA YES
== END 2025-07-26 09:58 | disposition home or self-care (01) ==
LOC: HO.WFDLDS 09:57
PROVIDERS: Visit Provider Internal Medicine
DX: Z00.00 Encounter for general adult medical examination without abnormal findings (principal); Z13.6 Encounter for screening for cardiovascular disorders; I48.0 Paroxysmal atrial fibrillation; R00.2 Palpitations; E55.9 Vitamin D deficiency, unspecified
CPT/HCPCS: 36415; 80053; 80061; 81001; 82306; 84443; 85025

== ENCOUNTER 2025-08-01 07:30 | Outpatient (AMB) | payer MEDICARE, SELFPAY ==
--- NOTE | 2025-08-01 08:12 | MHC.PC.OV ---
Vital Signs 08/01/25 08:13 Height 5 ft 2 in Weight 212 lb BMI 38.8 BP 120/70 Blood Pressure Location Lt brachial Position Sitting Respiration 17 Pulse 80 Pulse Source Pulse Oximeter Pulse Oximetry (%) 98 Oxygen Delivery Method Room Air Intake Visit Reasons: PE - see comments Intake Note: Pt is here today for PE. Allergies ENVIROMENTAL Allergy (Unknown, Uncoded 08/01/25 08:13) HEADACHES, DIZZY - FROM CERTAIN [place] Medication List - Last Reconciled 08/01/25 by Fabiola Chacon MD azelaic acid 15% (Finacea) 1 appl topical BID cholecalciferol (vitamin D3) 50 mcg PO DAILY metronidazole 0.75% 1 appl topical BEDTIME Tobacco use date assessed: 08/01/25 Fall risk assessment: No Falls in past year Last assessed Fall Risk: 08/01/25 Dental Screening Dental Screen Date: 08/01/25 Did you have a dental visit in the last 12 months?: No Did you have a dental problem in the last 6 months where you did not have access to dental care?: No Was dental information given to patient?: Patient declined HPI PE - see comments HPI Details Patient presents for PE. [facility] Medical History (Updated 08/01/25 @ 08:29 by Fabiola Chacon MD) Annual physical exam Colonoscopy refused Vitamin D deficiency Mammogram declined Paroxysmal atrial fibrillation Surgical History No pertinent past surgical history Social History Alcohol intake: never Patient Tobacco Use Status: Never used Tobacco e-Cigarette/Vaping Use: Never Used Current occupational status: retired Cognitive needs: No Hearing needs: No Vision needs: No Questionnaire PHQ-9 Over the last 2 weeks, how often have you been bothered by any of the following problems? 1. Little interest or pleasure in doing things: not at all 2. Feeling down, depressed, or hopeless: not at all 3. Trouble falling or staying asleep, or sleeping too much: not at all 4. Feeling tired or having little energy: not at all 5. Poor appetite or overeating: not at all 6. Feeling bad about yourself - or that you are a failure or have let yourself or your family down: not at all 7. Trouble concentrating on things, such as reading the newspaper or watching television: not at all 8. Moving or speaking so slowly that other people could have noticed. Or the opposite - being so fidgety or restless that you have been moving around a lot more than usual: not at all 9. Thoughts that you would be better off or of hurting yourself in some way: not at all Total score: 0 Depression Screening Interpretation: Negative Depression Screening Done: Yes 25048 - PHQ-9 Billing: Yes Source: Developed by Drs. Kye Mcmillan, Deepika Luna, Tree Garsia and colleagues, with an educational gregorio from [employer]. Thrive Questionnaire Date Thrive assessed: 08/01/25 I am a: Patient What is your living situation today?: I have a steady place to live Within the past 12 months, did the food you bought not last and you didn't have the money to get more?: Never true Within the past 12 months, did you worry whether your food would run out before you got money to buy more?: Never true Do you have trouble paying for medicines?: No Do you have trouble getting transportation to medical appointments?: No Do you have trouble paying your heating and electricity bill?: No Do you have trouble taking care of your child, family member or friend?: No Do you have trouble with day-to-day activities such as bathing, preparing meals, shopping, managing finances, etc.?: No Are you currently unemployed and looking for a job?: No Are you interested in more education?: No THRIVE Score: 0 AUDIT C Alcohol Use Questionnaire (AUDIT-C) 1. How often do you have a drink containing alcohol?: Never 3. How often do you have six or more drinks on one occasion?: Never Total Score: 0 MART-7 AMB Questionnaire MART-7 Date MART - 7 assessed: 08/01/25 Feeling nervous, anxious, or on edge: 0 = Not at all Not being able to stop or control worryin = Not at all Worrying too much about different things: 0 = Not at all Trouble relaxin = Not at all Being so restless that it is hard to sit still: 0 = Not at all Becoming easily annoyed or irritable: 0 = Not at all Feeling afraid as if something awful might happen: 0 = Not at all Total MART-7 score (0-4 normal; 5-9 mild; 10-14 moderate; 15-21 severe): 0 Source: Developed by Drs. Kye Mcmillan, Deepika Luna, Tree Garsia and colleagues, with an educational gregorio from [employer]. MART-7 Assessment Billing MART-7 Assessment Tool: MART-7 Assessment 48866 Review of Systems Const All systems reviewed & are unremarkable except as noted in HPI and below Eyes Reports no additional complaints ENT Reports no additional complaints Card Reports no additional complaints Resp Reports no additional complaints GI Reports no additional complaints Reports no additional complaints Physical exam (Primary Care) Vital Signs: Last Vital Signs Pulse 80 08/01/25 08:13 Resp 17 08/01/25 08:13 BP 120/70 08/01/25 08:13 Pulse Ox 98 08/01/25 08:13 Oxygen Delivery Method Room Air 08/01/25 08:13 BMI result Body Mass Index 38.8 Tobacco/Smoking Status: Tobacco use Status Tobacco use date assessed 08/01/25 08/01/25 08:18 Patient Tobacco Use Status Never used Tobacco 08/01/25 08:18 e-Cigarette/Vaping Use Never Used 08/01/25 08:18 PHQ-9: PHQ-9 Score PHQ-9: Total score 0 08/01/25 08:18 Depression Screening Interpretation: Negative Thrive Assessment: Date of Thrive Assessment Date Thrive assessed 08/01/25 08/01/25 08:18 Const General: no acute distress HENMT Head: Yes normal to inspection General nose exam: Normal external nose present Mouth: Normal oral and palatal mucosa present Throat: Yes posterior oropharynx normal Eyes General: appearance normal, both eyes and all related structures Neck Neck: Yes no lymphadenopathy and Yes supple Resp Effort & Inspection: normal respiratory effort Auscultation: clear to auscultation bilaterally Cardio Rhythm: regular rhythm Heart sounds: S1 normal heart sound present and S2 normal heart sound present GI Inspection: Yes normal to inspection Palpation (GI): Soft to palpation Percussion: Yes normal to percussion Auscultation: normal bowel sounds Coding Level of Care Code Est Pt Prev Care >65y(69451) Diagnoses Annual physical exam Z00.00 Additional Codes MART-7 Assessment Billing - MART-7 Assessment Tool: MART-7 Assessment 99386 ([id number]) PHQ-9 - 51841 - PHQ-9 Billing: Yes ([id number]) Assessment & Plan Assessment & Plan (1) Annual physical exam: Comment: Patient declined immunization Code(s): Z00.00 - Encounter for general adult medical examination without abnormal findings Category: Medical Plan: Well-balanced diet regular physical activity discussed with the patient. Patient declined colonoscopy and mammogram. She declined medications for paroxysmal AFib. Patient is aware of increased risk of stroke with paroxysmal AFib and not taking anticoagulation. Orders: Orders Complete Blood Count Auto Diff 1 Year Z00.00 - Encounter for general adult medical examination without abnormal findings Lipid Panel 1 Year Z00.00 - Encounter for general adult medical examination without abnormal findings Comprehensive [place]. Panel Fast 1 Year Z00.00 - Encounter for general adult medical examination without abnormal findings Medications: Refilled metronidazole 0.75% 1 appl topical BEDTIME 45 grams 3RF cholecalciferol (vitamin D3) 50 mcg PO DAILY 90 tabs 2RF Discontinued metoprolol succinate ER Discontinued Reason: Doctor's Order 25 mg PO DAILY 90 tabs 0RF apixaban (Eliquis) Discontinued Reason: Doctor's Order 5 mg PO BID 180 tabs 0RF
[2025-08-01 08:13] VITALS: BP 120/70; PULSE 80; RESP 17; O2SAT 98; BMI 38.8
== END 2025-08-01 08:26 | disposition home or self-care (01) ==
LOC: HO.HMCC 07:30
PROVIDERS: PCP Internal Medicine; Visit Provider Internal Medicine
DX: Z00.00 Encounter for general adult medical examination without abnormal findings (principal)

== ENCOUNTER → 2025-08-01 07:30 | Outpatient (BNVA) | payer MEDICARE, SELFPAY | PROVIDERS: PCP Internal Medicine; Visit Provider Internal Medicine | DX: Z00.00 Encounter for general adult medical examination without abnormal findings (principal); Z13.31 Encounter for screening for depression; Z13.39 Encounter for screening examination for other mental health and behavioral disorders | CPT/HCPCS: 96127; 99397 ==